=== PATIENT | male | born 1945 | race Caucasian/White ===

== ENCOUNTER 2022-06-03 12:34 | Inpatient (IN) | payer OTHER, MEDICARE, SELFPAY ==
[2022-06-03] VITALS (16 sets, daily range): BP systolic 82–121; BP diastolic 40–77; PULSE 81–125; RESP 16–23; TEMP 36.4–37.2; O2SAT 91–100; BMI 22.1
--- NOTE | ~2022-06-03 | US_ITS ---
EXAMINATION: US carotid duplex BI DATE: 06/04/2022 12:24 INDICATION: Syncope. TECHNIQUE: Grayscale, color Doppler, and pulsed Doppler images of the cervical carotid arteries were obtained. The degree of vessel stenosis is placed in one of the following categories: normal, <50%, 5 0-69%, >=70% but less than near-occlusion, near-occlusion, or total occlusion. Note that percent sten osis relative to normal distal artery lumen diameter is indirectly measured from velocity measurement s as described by Baldo, et al. Radiology 2003; 229:340-346. COMPARISON: None. FINDINGS: RIGHT: The right common carotid artery (CCA) peak systolic velocity (PSV) is 76 cm/s. The right internal car otid artery (ICA) PSV is 76 cm/s. The right ICA end-diastolic velocity (EDV) is 23 cm/s. The right IC A/CCA PSV ratio is 1.0. Grayscale and color Doppler images yield an estimate of <50% diameter reducti on from plaque in the ICA. There is antegrade flow in the right vertebral artery. LEFT: The left CCA PSV is 78 cm/s. The left ICA PSV is 73 cm/s. The left ICA EDV is 20 cm/s. The left ICA/C CA PSV ratio is 0.9. Grayscale and color Doppler images yield an estimate of <50% diameter reduction from plaque in the ICA. There is antegrade flow in the left vertebral artery. IMPRESSION: 1. <50% stenosis in the right internal carotid artery. 2. <50% stenosis in the left internal carotid artery. Reviewed, dictated and finalized at location A.
--- NOTE | ~2022-06-03 | CT_ITS ---
EXAMINATION: CTA chest PE protocol DATE: 06/03/2022 16:26 INDICATION: syncope TECHNIQUE: Computed tomography angiography (CTA) of the chest was performed with 100 mL Omnipaque-350 intravenous contrast timed to evaluate the pulmonary arteries. Coronal maximum intensity projection 3D-reconstructions were created by the technologist. The dose-length product (DLP) was 404.72 mGy-cm. Automated exposure control and iterative reconstruction technique were employed. COMPARISON: X-ray chest, same date. FINDINGS: Lung parenchyma and airways: Multiple sub-6 mm pulmonary nodules. Emphysematous and senescent change. Bibasilar atelectasis. Pleura: Unremarkable. Thoracic inlet, axillae and chest wall: Unremarkable. Thoracic aorta: Moderate arch calcification. Mediastinum: Normal. Heart and pericardium: Normal. Coronary artery calcifications: Moderate. Upper abdomen: No significant finding. Bones: No acute osseous finding. Pulmonary arteries: Study quality: Adequate. No pulmonary emboli detected. IMPRESSION: No CT evidence of acute pulmonary embolus. Multiple sub-6 cm pulmonary nodules, requiring no addition al evaluation unless the patient is at high risk, in which case consider optional low-dose CT of the chest in 12 months. Reviewed, dictated and finalized at location K. IMPRESSION: No CT evidence of acute pulmonary embolus. Multiple sub-6 cm pulmonary nodules, requiring no additional evaluation unless the patient is at high risk, in whic h case consider optional low-dose CT of the chest in 12 months.
--- NOTE | ~2022-06-03 | XR_ITS ---
EXAMINATION: XR chest 1V portable DATE: 06/03/2022 13:14 INDICATION: Altered mental status. TECHNIQUE: A single frontal view of the chest was obtained. COMPARISON: Chest 2 views 07/02/2009 FINDINGS: There is chronic elevation of left hemidiaphragm. There is mild atelectasis at left lung ba se. No pleural effusion or pneumothorax. The heart size is normal. IMPRESSION: 1. Chronic elevation of left hemidiaphragm with mild atelectasis at left lung base. Reviewed, dictated and finalized at location A.
--- NOTE | ~2022-06-03 | MR_ITS ---
EXAMINATION: MR brain/brain stem wo/w con DATE: 06/04/2022 12:13 INDICATION: Syncope. TECHNIQUE: Magnetic resonance imaging (MRI) of the brain and brainstem was performed without and with 13 mL MultiHance intravenous contrast. COMPARISON: Head CT 06/03/2022 FINDINGS: There is an old infarct in involving the genu of the corpus callosum. There are scattered a reas of nonspecific increased T2-weighted signal intensity in the cerebral white matter. There is no intracranial hemorrhage, acute infarction, or abnormal intracranial mass lesion. The ventricles are n ormal in size. There are likely changes of ocular lens replacement surgeries. There is mucosal thicke taco in the paranasal sinuses. The mastoid air cells are normal. IMPRESSION: 1. Old infarcts involving genu of the corpus callosum. 2. Extensive nonspecific cerebral white matter disease, which likely represents chronic small vessel ischemic disease. Reviewed, dictated and finalized at location A.
--- NOTE | ~2022-06-03 | CT_ITS ---
EXAMINATION: CT brain wo con DATE: 06/03/2022 13:43 INDICATION: Dizziness. TECHNIQUE: Computed tomography (CT) of the head was performed without intravenous contrast. The mA wa s adjusted according to patient size. Iterative reconstruction technique was employed. The dose-lengt h product was 605.33 mGy-cm. COMPARISON: None FINDINGS: There are scattered areas of low attenuation in the cerebral white matter. There is no intr acranial hemorrhage, acute infarction, or abnormal intracranial mass lesion. There is an old infarct involving genu of the corpus callosum. There is no intracranial hemorrhage, acute infarction, or abno rmal intracranial mass lesion. The ventricles are normal in size. There is mucosal thickening in the paranasal sinuses. There are likely changes of ocular lens replacement surgeries. The mastoid air hemal ls are normal. IMPRESSION: 1. Old infarct involving genu of the corpus callosum. 2. Extensive nonspecific cerebral white matter disease, which likely represents chronic small vessel ischemic disease. Reviewed, dictated and finalized at location A.
--- NOTE | 2022-06-03 12:44 | ECG_ITS ---
Measurements Intervals [place] Rate: 107 P: 49 DC: 160 QRS: 54 QRSD: 87 T: 68 QT: 307 QTc: 411 Interpretive Statements SINUS TACHYCARDIA INCOMPLETE RIGHT BUNDLE BRANCH BLOCK NONSPECIFIC T-WAVE ABNORMALITY ABNORMAL RHYTHM ECG NO PREVIOUS ECG AVAILABLE FOR COMPARISON Electronically Signed On 06-04-2022 11:50:22 CDT by Bladimir Perez M.D.
[2022-06-03] MEDS: SODIUM CHLORIDE 0.9% IV 1,000 ML 999 ML IV CONT ×2 (13:14→14:47)
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
[2022-06-03 13:33] LABS: Basophils Percent Auto 0.2 % (0.2-1.2); Eosinophils Percent Auto 0.2 % (0-4.4); Hematocrit 38.9 % (42.0-52.0); Immature Granulocyte Absolute 0.08 K/mm3 (0.00-0.031); Immature Granulocyte Percent A 0.4 % (0-0.5); Immature Platelet Fraction Pct 7.7 % (0.9-11.2); Lymphocytes Absolute Auto 0.55 K/mm3 (0.9-3.2); Lymphocytes Percent Auto 3.1 % (18.3-44.2); Mean Corpuscular HGB Conc 33.4 g/dl (32-36); Mean Corpuscular Hemoglobin 31.8 pg (26-34); Mean Corpuscular Volume 95.1 fl (80-100); Mean Platelet Volume 10.3 fl (7.4-10.4); Monocytes Absolute Auto 1.4 K/mm3 (0.1-0.6); Neutrophils Absolute Auto 15.8 K/mm3 (1.3-6.7); Neutrophils Percent Auto 88.1 % (45.5-73.1); Platelet Count Result 263 k/mm3 (150-375); Red Blood Count 4.09 M/mm3 (4.6-6.20); Red Cell Distribution Width 13.1 % (11.5-14.5)
[2022-06-03 13:41] LABS: INR 1.1; Prothrombin Time 13.8 Seconds (11.1-14.7)
[2022-06-03 13:42] LABS: Lactic Acid Reflex 2.1 mmol/L (0.7-2.0)
[2022-06-03 13:43] LABS: Partial Thromboplastin Time 40.9 SECONDS (22.3-36.8)
[2022-06-03 13:45] LABS: Alanine Aminotransferase 20 U/L (6-50); Albumin Level 4.3 g/dL (3.5-5.1); Alkaline Phosphatase 113 U/L (38-126); Anion Gap 7 mmol/L (8-16); Aspartate Amino Transferase 27 U/L (17-59); Bilirubin,Total 0.8 mg/dL (0.2-1.3); Blood Urea Nitrogen 13 mg/dL (9-20); Carbon Dioxide 31 mmol/L (22-30); Chloride 98 mmol/L (98-107); Estimated CRCL calculation 57 ml/min; Estimated Glomerular Filt Rate > 60; Glucose 124 mg/dL (65-110); Lipase 55 U/L (23-300); Magnesium 1.5 mg/dL (1.6-2.3); Sodium 136 mmol/L (137-145)
[2022-06-03 13:55] LABS: Troponin I < 0.012 ng/mL (0.000-0.034)
[2022-06-03] MEDS: MAGNESIUM SULF 2 GM/WATER 50ML 2 GM/50 ML BAG IVPB (14:31)
[2022-06-03 14:49] LABS: Influenza A QL RT-PCR Negative (Negative); Influenza B QL RT-PCR Negative (Negative); SARS-CoV-2 RNA PCR Negative
[2022-06-03 15:32] LABS: Add Urine Microscopic? YES; Appearance Urine Clear (Clear); Bacteria Urine None Seen /hpf; Bilirubin Urine Negative (Negative); Blood Urine Trace (Negative); Color Urine Yellow (Yellow); Glucose Urine UA Negative (Negative); Ketones Urine Negative (Negative); Leukocyte Esterase Ur Negative LEU/UL (Negative); Need Manual Microscopic Reviewed; Nitrate Urine Negative (Negative); Non Pathogenic Casts 0-2; Protein Urine 1+ mg/dL (Negative); Specific Grav Ur 1.017 (1.001-1.035); Squamous Epithelial Cell Urine None seen /hpf (Few); WBC Urine 0-5 /hpf; pH Urine 6.5 (5.0-9.0)
[2022-06-03 16:29] LABS: Reflex Lactic Acid Yes or No Add Lactic
[2022-06-03] MEDS: SODIUM CHLORIDE 0.9% IV 1,000 ML 80 ML IV CONT (17:22)
[2022-06-03 17:40] LABS: Lactic Acid 0.8 mmol/L (0.7-2.0)
[2022-06-03 17:55] LABS: Glucose Point of Care 96 mg/dl (65-105)
[2022-06-03 17:57] LABS: Troponin I 0.129 ng/mL (0.000-0.034)
--- NOTE | 2022-06-03 18:14 | ADMGEN ---
This patient, Servando Joyce, was admitted to IMU Room 206-02. Patient/family oriented to hospital policies and general routines including ID bracelet, bed and alarms, visiting hours, pain management, procedures, bathroom and other care routines, personal items, smoking policy, room service/diet, and visiting hours. Information on how to activate the Rapid Response Team has been discussed. Patient/Family are encouraged to report perceived risks to care and to ask questions if they do not understand what they are told or what they should do.
[2022-06-03 19:38] LABS: Troponin I 0.236 ng/mL (0.000-0.034)
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
[2022-06-04] VITALS (18 sets, daily range): BP systolic 81–117; BP diastolic 38–69; PULSE 20–86; RESP 16–96; TEMP 36.4–36.9; O2SAT 93–98
--- NOTE | 2022-06-04 | ECHO_ITS ---
Patient Info Name: Servando Joyce Age: 77 years : 1945 Gender: Male Ht: 68 in Wt: 145 lbs BSA: 1.78 m2 HR: 75 bpm BP: 81 / 38 mmHg Heart Rhythm: Sinus Rhythm Exam Date: 06/04/2022 8:58 AM Exam Location: [facility] Patient Status: Outpatient Admit Date: 06/03/2022 Staff Ordering Physician: Julia Strauss NP Surfboard Maker: Shant Palma RDCS, RT Attending Provider: Lashon Pizano MD Referring Physician: Carlos A BARFIELD; Exam Type: CA echo doppler color flow Study Info Indications R55 - Syncope and collapse Complete two-dimensional, color flow and Doppler transthoracic echocardiogram is performed. Strain analysis performed. Summary 1. Complete two-dimensional, color flow and Doppler transthoracic echocardiogram is performed. 2. Strain analysis performed. 3. Left ventricular chamber dimension is normal. 4. Left ventricular systolic function is normal, estimated at 65-70%. 5. There is mildly increased left ventricular wall thickness. 6. The left ventricular diastolic function is grade I diastolic dysfunction. 7. Global longitudinal strain is normal at -22 %. 8. Left atrial chamber dimension is mildly enlarged. 9. Right atrial chamber dimension is mildly enlarged. 10. There is mild aortic valve stenosis with a peak velocity of 195 cm/s, mean gradient of 9 mmHg, and aortic valve area of 1.7 cm2. 11. There is moderate aortic valve calcification. 12. There is mild mitral valve regurgitation. 13. There is mild tricuspid valve regurgitation. Left Ventricle Left ventricular chamber dimension is normal. Left ventricular systolic function is normal, estimated at 65-70%. There is mildly increased left ventricular wall thickness. The left ventricular diastolic function is grade I diastolic dysfunction. Global longitudinal strain is normal at -22 %. Right Ventricle Right ventricular chamber dimension is normal. Right ventricular systolic function is normal. Left Atria Left atrial chamber dimension is mildly enlarged. Right Atria Right atrial chamber dimension is mildly enlarged. Atrial Septum Intact interatrial septum visualized by color flow imaging. Aortic Valve The aortic valve is trileaflet. There is mild aortic valve stenosis with a peak velocity of 195 cm/s, mean gradient of 9 mmHg, and aortic valve area of 1.7 cm2. There is trace aortic valve regurgitation. There is moderate aortic valve calcification. Pulmonic Valve The pulmonic valve is normal. There is no pulmonic valve stenosis. There is trace pulmonic regurgitation. Mitral Valve The mitral valve has thickened leaflets. There is no mitral valve stenosis. There is mild mitral valve regurgitation. Tricuspid Valve The tricuspid valve leaflets are normal. There is no significant tricuspid valve stenosis. There is mild tricuspid valve regurgitation. No pulmonary hypertension, estimated pulmonary arterial systolic pressure is 33 mmHg. Pericardium/Pleural The pericardium appears normal. There is trivial pericardial effusion. Inferior Vena Cava Normal inferior vena cava with >50% collapse upon inspiration consistent with normal right atrial pressure, 5 mmHg. Aorta The aortic root size at the sinus of Valsalva is normal. There is mild aortic atherosclerosis. Left Ventricular Outflow Tract Name Value Normal
[2022-06-04 00:39] LABS: Troponin I 0.408 ng/mL (0.000-0.034)
[2022-06-04 02:52] LABS: Amphetamine Screen Urine Negative (Negative); Barbiturate Screen Urine Negative (Negative); Benzodiazepines Screen Urine Negative (Negative); Cannabinoid Screen Urine Negative (Negative); Cocaine Screen Urine Negative (Negative); Methadone Screen Urine Negative (Negative); Opiate Screen Urine Negative (Negative); Phencyclidine Screen Urine Negative (Negative)
[2022-06-04 05:07] LABS: Basophils Percent Auto 0.2 % (0.2-1.2); Eosinophils Absolute Auto 0.2 K/mm3 (0-0.3); Eosinophils Percent Auto 1.5 % (0-4.4); Hematocrit 32.1 % (42.0-52.0); Hemoglobin 10.4 g/dL (14.0-18.0); Immature Granulocyte Absolute 0.06 K/mm3 (0.00-0.031); Immature Granulocyte Percent A 0.4 % (0-0.5); Lymphocytes Percent Auto 10.8 % (18.3-44.2); Mean Corpuscular HGB Conc 32.4 g/dl (32-36); Mean Corpuscular Hemoglobin 30.8 pg (26-34); Mean Platelet Volume 10.3 fl (7.4-10.4); Monocytes Percent Auto 13.4 % (2.6-8.5); Neutrophils Absolute Auto 10.9 K/mm3 (1.3-6.7); Neutrophils Percent Auto 73.7 % (45.5-73.1); Platelet Count Result 188 k/mm3 (150-375); Red Blood Count 3.38 M/mm3 (4.6-6.20); Red Cell Distribution Width 13.1 % (11.5-14.5); White Blood Count 14.9 K/mm3 (4.5-10.0)
[2022-06-04 05:19] LABS: Alanine Aminotransferase 17 U/L (6-50); Albumin Level 3.3 g/dL (3.5-5.1); Alkaline Phosphatase 80 U/L (38-126); Anion Gap 2 mmol/L (8-16); Aspartate Amino Transferase 28 U/L (17-59); Bilirubin,Total 0.8 mg/dL (0.2-1.3); Blood Urea Nitrogen 12 mg/dL (9-20); Calcium 8.2 mg/dL (8.4-10.2); Carbon Dioxide 28 mmol/L (22-30); Chloride 103 mmol/L (98-107); Estimated CRCL calculation 57 ml/min; Estimated Glomerular Filt Rate > 60; Glucose 87 mg/dL (65-110); Potassium 3.8 mmol/L (3.4-5.0); Sodium 133 mmol/L (137-145)
[2022-06-04 05:22] LABS: Lactic Acid Reflex 0.7 mmol/L (0.7-2.0)
[2022-06-04 06:07] LABS: Thyroid Stimulating Hormone Reflex 0.785 uIU/mL (0.465-4.68)
[2022-06-04] MEDS: SODIUM CHLORIDE 0.9% IV 1,000 ML 80 ML IV CONT (06:31)
--- NOTE | 2022-06-04 08:46 | PCRCNOTE ---
Patient refused 0800 Breathing treatment. RN notified
--- NOTE | 2022-06-04 08:48 | PC.NURSE ---
BP 87/49 with a MAP of 57. Asymptomatic. Orthostatics negative. Dr. Wagoner made aware. Advised to increase normal saline to 100 ml/hr.
[2022-06-04] MEDS: GABAPENTIN 400 MG CAPSULE 800 MG PO ×3 (09:01→17:43)
[2022-06-04] MEDS: CLOPIDOGREL BISULFATE 75 MG TABLET PO (09:01)
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
--- NOTE | 2022-06-04 10:56 | PC.NURSE ---
BP 86/48. Asymptomatic. Dr. Byrd made aware. New orders for 500 ml Bolus of NS.
[2022-06-04] MEDS: SODIUM CHLORIDE 0.9% IV 500 ML 999 ML IV CONT (11:09)
[2022-06-04] MEDS: diazePAM (*CRX) 5 MG TABLET PO (11:11)
[2022-06-04] MEDS: levoFLOXacin 500 MG/D5W 100 ML 500 MG/100 ML BAG 100 MG IVPB (12:26)
[2022-06-04 13:34] LABS: Troponin I 0.203 ng/mL (0.000-0.034)
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
[2022-06-04 14:07] LABS: Hematocrit 30.7 % (42.0-52.0); Hemoglobin 10.1 g/dL (14.0-18.0); Mean Corpuscular HGB Conc 32.9 g/dl (32-36); Mean Corpuscular Hemoglobin 31.2 pg (26-34); Mean Corpuscular Volume 94.8 fl (80-100); Mean Platelet Volume 10.2 fl (7.4-10.4); Platelet Count Result 176 k/mm3 (150-375); Red Blood Count 3.24 M/mm3 (4.6-6.20); White Blood Count 11.2 K/mm3 (4.5-10.0)
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
--- NOTE | 2022-06-04 15:53 | WPDNEURCNPN ---
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: Code(s): G40.109 - Localization-related (focal) (partial) symptomatic epilepsy and epileptic syndromes with simple partial seizures, not intractable, without status epilepticus Status: Acute Plan Considering the history of the previous stroke rule out the possibility of focal seizure with secondary generalization or else localization-related epilepsy I will obtain the EEG and further recommendation will be made accordingly Consult date: 06/04/22 HPI: Servando Joyce is a 77 year old male [facility] Past Medical History Medical History Anemia Coronary artery disease History of CVA (cerebrovascular accident) Hyperlipidemia Hypertension Melanoma Mitral valve prolapse PTSD (post-traumatic stress disorder) Surgical History Surgical History H/O cataract extraction History of removal of pigmented skin lesion Family History Family History Unknown Unobtainable family history due to adoption Social History Social History Social History: The patient is retired from the and is on disability. The patient lives with his youngest son. He is and has 4 children. He is a current smoker approximately 8-9 cigarettes a day. Code status full code Smoking status: Current some day smoker Alcohol intake: current Substance use: never Lack of Transportation: No Lack of Food: Never True Current Housing: I Have Housing Concerned About Future Housing: Decline to Answer Difficulty Paying Gas/Electric Bills: Decline to Answer Difficulty Paying for Meds: Decline to Answer Currently Unemployed: Decline to Answer Education: Decline to Answer Difficulty w/ Childcare or Family Care: Decline to Answer Spiritual care concerns: No Meds Home Medications and Allergies Home Medications Medication Instructions Recorded Confirmed Type atorvastatin 80 mg tablet 80 mg PO HS 06/03/22 06/03/22 History clopidogrel 75 mg tablet 75 mg PO DAILY 06/03/22 06/03/22 History gabapentin 800 mg tablet 800 mg PO TID 06/03/22 06/03/22 History lisinopril 10 mg tablet 10 mg PO DAILY 06/03/22 06/03/22 History Allergies Allergy/AdvReac Type Severity Reaction Status Date / Time aspirin Allergy Mild Anaphylaxis Verified 06/03/22 12:42 penicillin G Allergy Mild Anaphylaxis Verified 06/03/22 12:42 Vital Signs Vital Signs - 24 hr 06/03/22 18:00 06/03/22 17:23 06/03/22 17:48 Temperature 37.2 C Pulse Rate 98 95 Respiratory Rate 16 Blood Pressure 105/54 L 85/45 L Pulse Oximetry 92 Oxygen Delivery 06/03/22 17:48 06/03/22 19:59 06/03/22 20:00 Temperature 36.4 C Pulse Rate 84 Respiratory Rate 20 Blood Pressure 86/50 L 103/53 L Pulse Oximetry 94 94 Oxygen Delivery Room Air 06/03/22 23:29 06/03/22 20:00 06/03/22 23:52 Temperature 36.4 C Pulse Rate 82 81 Respiratory Rate 20 Blood Pressure 98/47 L Pulse Oximetry 94 94 Oxygen Delivery Room Air 06/03/22 22:00 06/04/22 00:00 06/04/22 02:00 Temperature Pulse Rate 83 82 75 Respiratory Rate Blood Pressure Pulse Oximetry Oxygen Delivery 06/04/22 03:44 06/04/22 04:00 06/04/22 04:00 Temperature 36.9 C Pulse Rate 79 79 Respiratory Rate 20 Blood Pressure 81/38 L Pulse Oximetry 93 94 Oxygen Delivery Room Air 06/04/22 06:00 06/04/22 08:00 06/04/22 08:00 Temperature 36.6 C
[2022-06-04] MEDS: ATORVASTATIN 40 MG TABLET 80 MG PO (20:47)
[2022-06-05] VITALS (10 sets, daily range): BP systolic 111–130; BP diastolic 54–64; PULSE 68–91; RESP 18–20; TEMP 36.4–37.1; O2SAT 95–98
[2022-06-05] MEDS: SODIUM CHLORIDE 0.9% IV 1,000 ML 80 ML IV CONT (01:13)
--- NOTE | 2022-06-05 08:25 | PCRCNOTE ---
Patient refused 0800 breathing Treatment and does not want to be scheduled. RN notified.
[2022-06-05] MEDS: GABAPENTIN 400 MG CAPSULE 800 MG PO ×2 (09:19→13:42)
[2022-06-05] MEDS: CLOPIDOGREL BISULFATE 75 MG TABLET PO (09:19)
--- NOTE | 2022-06-05 09:31 | P.NEURO_ITS ---
Neurology EEG Report General Information Date of Study: 06/05/22 TEST eeg DIAGNOSIS seizures vs rigors CONDITION OF RECORDING awake ,drowsy and sleep EEG NUMBER [id number] CLINICAL HISTORY History of possible seizure versus rigors EEG DESCRIPTION basic resting occipital frequency consists of very minimal amount of low- voltage to medium voltage 8 to 9 hertz per 2nd alpha during brief periods of wakefulness admixed with low-voltage 15 to 18 hertz per 2nd beta. Low-voltage beta activity seen diffusely during drowsiness admixed with waxing and waning posterior alpha rhythm. Bilateral symmetrical sleep activity seen during sleep. Hyperventilation not done. Photic stimulation not done. Non paroxysmal. Nonfocal. Nonlateralizing. IMPRESSION No significant abnormalities noted.
[2022-06-05 11:21] LABS: Hematocrit 32.3 % (42.0-52.0); Hemoglobin 10.5 g/dL (14.0-18.0); Mean Corpuscular HGB Conc 32.5 g/dl (32-36); Mean Corpuscular Hemoglobin 30.7 pg (26-34); Mean Corpuscular Volume 94.4 fl (80-100); Platelet Count Result 176 k/mm3 (150-375); Red Blood Count 3.42 M/mm3 (4.6-6.20); Red Cell Distribution Width 12.9 % (11.5-14.5); White Blood Count 10.4 K/mm3 (4.5-10.0)
--- NOTE | 2022-06-05 11:21 | WPDNEUROPN ---
Subjective Date/time seen: 06/05/22 11:21 Interval history: Seen initially on 06/04 for the possibility of the TIA versus seizure EEG this morning is completely normal but I would like him to start on Keppra 500 mg twice a day orders have been given and he will be followed in the office in 6 weeks. Objective Data Vital Signs Vital Signs: Vital Signs - 24 hr 06/04/22 12:00 06/04/22 12:00 06/04/22 12:00 Temperature 36.5 C Pulse Rate 66 74 Respiratory Rate 16 Blood Pressure 97/57 L Pulse Oximetry 97 97 Oxygen Delivery Room Air 06/04/22 14:00 06/04/22 16:00 06/04/22 16:00 Temperature Pulse Rate 73 68 Respiratory Rate Blood Pressure Pulse Oximetry 97 Oxygen Delivery Room Air 06/04/22 16:00 06/04/22 18:00 06/04/22 20:00 Temperature 36.7 C Pulse Rate 72 86 Respiratory Rate 20 Blood Pressure 105/69 Pulse Oximetry 98 96 Oxygen Delivery Room Air 06/04/22 20:37 06/04/22 20:37 06/04/22 20:00 Temperature 36.4 C Pulse Rate 76 73 Respiratory Rate 20 Blood Pressure 115/58 L 116/62 Pulse Oximetry 96 Oxygen Delivery 06/04/22 22:00 06/04/22 23:43 06/05/22 00:00 Temperature 36.5 C Pulse Rate 71 77 Respiratory Rate 20 Blood Pressure 117/64 Pulse Oximetry 97 Oxygen Delivery Room Air 06/05/22 00:00 06/05/22 02:00 06/05/22 03:55 Temperature Pulse Rate 91 85 Respiratory Rate Blood Pressure Pulse Oximetry Oxygen Delivery Room Air 06/05/22 04:54 06/05/22 04:00 06/05/22 06:00 Temperature 36.4 C Pulse Rate 69 76 72 Respiratory Rate 20 Blood Pressure 130/64 Pulse Oximetry 98 Oxygen Delivery 06/05/22 07:56 06/05/22 08:20 Temperature 37.1 C Pulse Rate 91 Respiratory Rate 18 Blood Pressure 111/54 L Pulse Oximetry 97 95 Oxygen Delivery Room Air Intake/Output Intake/Output: Intake & Output 06/02/22 06/03/22 06/04/22 06/05/22 23:59 23:59 23:59 23:59 Intake Total 2050 4820 1000 Output Total 1650 1700 Balance 2050 3170 -700 Meds/Results Medications: Active Medications Generic Name Dose Route Start Last Admin Trade Name Freq PRN Reason Stop Dose Admin Atorvastatin Calcium 80 mg 06/04/22 21:00 06/04/22 20:47 Atorvastatin 40 Mg Tablet PO 80 mg HS OSIEL Administration Clopidogrel Bisulfate 75 mg 06/04/22 09:00 06/05/22 09:19 Clopidogrel Bisulfate 75 Mg Tablet PO 75 mg DAILY OSIEL Administration Gabapentin 800 mg 06/04/22 09:00 06/05/22 09:19 Gabapentin 400 Mg Capsule PO 800 mg TID OSIEL Administration Sodium Chloride 1,000 mls @ 100 mls/hr 06/03/22 15:45 06/05/22 07:00 Normal Saline Iv IV CONT 06/05/22 15:44 100 mls/hr .Q10H OSIEL Infusion Levofloxacin/Dextrose 500 mg in 100 mls @ 100 mls/hr 06/04/22 12:00 06/04/22 12:26 Levaquin 500 Mg/D5w 100 Ml IVPB 100 mls/hr Q24H OSIEL Administration Ipratropium Al[place] 0.5 mg 06/04/22 02:00 06/05/22 08:19 Ipratropium Br 0.02% Inh Soln 0.5 Mg/2.5 Ml Vial INHALATION Not Given Q6HRT OSIEL Levalbuterol HCl 0.63 mg 06/04/22 02:00 06/05/22 08:19 Levalbuterol Neb 1.25 Mg/3 Ml INHALATION Not Given Q6HRT OSIEL Perflutren Lipid Microsphere 0 ml 06/03/22 23:07 Perflutren Lipid Microspheres 1.5 Ml Vial Diluted To 10 Ml Total Volume IV PUSH 06/05/22 23:07 ONCE PRN adequate visualization Protocol Radiology Results: ITS Impressions Chest X-Ray 06/03/22 13:17 IMPRESSION: 1. Chronic elevation of left hemidiaphragm with mild atelectasis at left lung base. Head CT 06/03/22 13:48 IMPRESSION: 1. Old infarct involving genu of the corpus callosum. 2. Extensive nonspecific cerebral white matter disease, which likely represents chronic small vessel ischemic disease. Chest CTA 06/03/22 16:34 IMPRESSION: No CT evidence of acute pulmonary embolus. Multiple sub-6 cm pulmonary nodules, requiring no additional evaluation unless the patient is at high risk, in which case
[2022-06-05 11:33] LABS: Lactic Acid Reflex 1.1 mmol/L (0.7-2.0)
[2022-06-05 11:34] LABS: Anion Gap 3 mmol/L (8-16); Blood Urea Nitrogen 10 mg/dL (9-20); Carbon Dioxide 32 mmol/L (22-30); Chloride 101 mmol/L (98-107); Estimated CRCL calculation 66 ml/min; Estimated Glomerular Filt Rate > 60; Glucose 87 mg/dL (65-110); Potassium 3.5 mmol/L (3.4-5.0); Sodium 136 mmol/L (137-145)
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
[2022-06-05] MEDS: levETIRAcetam 500 MG TABLET PO (13:42)
== END 2022-06-05 14:56 | disposition home or self-care (01) | DRG 101 ==
LOC: ANHED 15:47 → ANHIMU 16:31
PROVIDERS: Family Medicine; Internal Medicine; Internal Medicine Cardiovascular Disease; Nurse Practitioner; Admitting Provider Family Medicine; Emergency Provider Emergency Medicine; Visit Provider Internal Medicine
DX: G40.109 Localization-related (focal) (partial) symptomatic epilepsy and epileptic syndromes with simple partial seizures, not intractable, without status epilepticus (principal); R00.0 Tachycardia, unspecified; I95.9 Hypotension, unspecified; D64.9 Anemia, unspecified; I25.10 Atherosclerotic heart disease of native coronary artery without angina pectoris; E78.5 Hyperlipidemia, unspecified; R77.8 Other specified abnormalities of plasma proteins; I10 Essential (primary) hypertension; Z20.822 Contact with and (suspected) exposure to COVID-19; F43.10 Post-traumatic stress disorder, unspecified; D72.829 Elevated white blood cell count, unspecified; I34.1 Nonrheumatic mitral (valve) prolapse; F17.210 Nicotine dependence, cigarettes, uncomplicated; Z85.820 Personal history of malignant melanoma of skin; Z86.73 Personal history of transient ischemic attack (TIA), and cerebral infarction without residual deficits; Z98.49 Cataract extraction status, unspecified eye; I25.2 Old myocardial infarction; Z95.5 Presence of coronary angioplasty implant and graft
CPT/HCPCS: 36415; 70450; 70553; 71045; 71275; 80048; 80053; 80307; 81001; 82948; 83605; 83690; 83735; 84443; 84484; 85025; 85027; 85055; 85610; 85730; 87040; 87636; 93005; 93306; 93880; 95816; 96360; 96361; 96365; 99285; A9270; A9577; G0378; J1956; J3475; J7030; Q9967

== ENCOUNTER 2024-05-07 15:54 | Emergency (ER) | payer OTHER, MEDICARE, SELFPAY ==
--- NOTE | ~2024-05-07 | XR_ITS ---
XR chest 2V Ordering provider: Jerad Negro MD History: 79 years Male with . IRREGULAR HEART RATE, SOB . Comparison: June 03, 2022 FINDINGS: MEDIASTINUM: The cardiac silhouette is not enlarged. Slightly congestive yoselyn. LUNGS: No effusions or pneumothorax. Prominent bronchovascular markings in the right lung base which may indicate atelectasis versus early pneumonia. Follow-up advised. Underlying emphysematous changes. Elevation of the left hemidiaphragm due to underlying colonic loops. OTHER: No free air under the diaphragm. Degenerative changes of the spine. IMPRESSION: Prominent markings in the right lung base suggestive of early pneumonia. Follow-up and clinical corre lation advised. Reviewed, dictated and finalized at location A. [employer] OPERATOR IMPRESSION: Prominent markings in the right lung base suggestive of early pneumonia. Follow -up and clinical correlation advised.
--- NOTE | 2024-05-07 15:57 | ECG_ITS ---
Test Date: 2024-05-07 16:41:39 Measurements Intervals [place] Rate: 95 P: 64 W[place]: 112 QRS: 48 QRSD: 81 T: 70 QT: 382 QTc: 480 Interpretive Statements SINUS RHYTHM WITH SHORT [place] INTERVAL WITH OCCASIONAL SUPRAVENTRICULAR PREMATURE COMPLEXES INCOMPLETE RIGHT BUNDLE BRANCH BLOCK No previous ECG available for comparison Electronically Signed On 05-08-2024 16:19:59 [employer]ANCH SUPERVIS[employer] by Bladimir Perez M.D.
[2024-05-07 16:32] VITALS: BP 131/67; PULSE 95; RESP 18; TEMP 36.6; O2SAT 92
--- NOTE | 2024-05-07 16:46 | ED_ITS ---
HPI - Arrhythmia/Palpitations General Chief Complaint: Arrhythmia/Palpitations <Odalys Zepeda PA-C - Last Filed: 05/07/24 16:49> Stated Complaint: IRREGULAR HEART RATE <Odalys Zepeda PA-C - Last Filed: 05/07/24 16:49> Time Seen by Provider: 05/07/24 16:40 <Odalys Zepeda PA-C - Last Filed: 05/07/24 16:49> Focused HPI: Patient is a 79-year-old male who presents the ED with report of shortness of breath and irregular heartbeat. Patient reports he checked his blood pressure this morning on his machine at home and his BP was WNL at 120 systolic, but the monitor reported that his heartbeat was irregular. He states he checked his blood pressure several times throughout the day and each time it reported irregular heartbeat. He reports feeling very jittery and restless. States he can hardly sit still. Does feel short of breath. Notes he was sick last week with cough and congestion. He is still coughing, but denies fevers. He denies chest pain. Denies pain or swelling in legs. GENERAL: Elderly, well-nourished, and in no acute distress. HEAD: Normocephalic, atraumatic. CHEST: Clear to auscultation. ?No respiratory distress. HEART: Regular rate and rhythm.? NEURO: ?Alert and oriented x3. No gross focal deficits. Patient screened in triage and initial orders placed.? ?Additional care and disposition to be based upon?diagnostic testing and treatment. <Odalys Zepeda PA-C - Last Filed: 05/07/24 16:49> Focused HPI: Patient is a 79-year-old male who presents the ED with report of shortness of breath and irregular heartbeat. Patient reports he checked his blood pressure this morning on his machine at home and his BP was WNL at 120 systolic, but the monitor reported that his heartbeat was irregular. He states he checked his blood pressure several times throughout the day and each time it reported irregular heartbeat. He reports feeling very jittery and restless. States he can hardly sit still. Does feel short of breath. Notes he was sick last week with cough and congestion. He is still coughing. He denies chest pain. Denies pain or swelling in legs. GENERAL: Elderly, well-nourished, and in no acute distress. HEAD: Normocephalic, atraumatic. CHEST: Clear to auscultation. ?No respiratory distress. HEART: Regular rate and rhythm.? NEURO: ?Alert and oriented x3. No gross focal deficits. Patient screened in triage and initial orders placed.? ?Additional care and disposition to be based upon?diagnostic testing and treatment. <KASSY Harris Last Filed: 05/08/24 01:13> Source: patient <KASSY Bob Last Filed: 05/07/24 16:49> Mode of arrival: ambulatory <KASSY Bob Last Filed: 05/07/24 16:49> Limitations: no limitations <KASSY Bob Last Filed: 05/07/24 16:49> Related Data Home Medications: Home Medications ?Medication ?Instructions ?Recorded ?Confirmed ?Last Taken ?Type atorvastatin 80 mg tablet 80 mg PO HS 06/03/22 06/03/22 Unknown History clopidogrel 75 mg tablet 75 mg PO DAILY 06/03/22 06/03/22 Unknown History gabapentin 800 mg tablet 800 mg PO TID 06/03/22 06/03/22 Unknown History <KASSY Bob Last Filed: 05/07/24 16:49> Allergies/Adverse Reactions: Allergies Allergy/AdvReac Type Severity Reaction Status Date / Time aspirin Allergy Mild Anaphylaxis Verified 05/07/24 15:55 penicillin G Allergy Mild Anaphylaxis Verified 05/07/24 15:55 <KASSY Bob Last Filed: 05/07/24 16:49> Review of Systems 2 Review of Systems: CONSTITUTIONAL: Reports fever ENT: Reports congestion CARDIOVASCULAR: Denies chest pain, or edema. RESPIRATORY: Reports cough and dyspnea. <KASSY Harris Last Filed: 05/08/24 01:13> All systems reviewed & are unremarkable except as noted in HPI and below < KASSY Harris Last Filed: 05/08/24 01:13> PMFSH Past Medical History Medical History: Medical History Anemia Coronary artery disease History of CVA (cerebrovascular accident) Hyperlipidemia Hypertension Melanoma Mitral valve prolapse PTSD (post-traumatic stress disorder) <Odalys Zepeda PA-C - Last Filed: 05/07/24 16:49> Surgical History Surgical History: Surgical History H/O cataract extraction History of removal of pigmented skin lesion <Odalys Zepeda PA-C - Last Filed: 05/07/24 16:49> Family History Family History: Family History Unknown Unobtainable family history due to adoption <Odalys Zepeda PA-C - Last Filed: 05/07/24 16:49> Social History Social History: Social History Social History: The patient is retired from the and is on disability. The patient lives with his youngest son. He is and has 4 children. He is a current smoker approximately 8-9 cigarettes a day. Code status full code Smoking status: Current some day smoker Alcohol intake: current Substance use: never Lack of Transportation: No Lack of Food: Never True Current Housing: I Have Housing Concerned About Future Housing: Decline to Answer Difficulty Paying Gas/Electric Bills: Decline to Answer Difficulty Paying for Meds: Decline to Answer Currently Unemployed: Decline to Answer Education: Decline to Answer Difficulty w/ Childcare or Family Care: Decline to Answer Spiritual care concerns: No <Odalys Zepeda PA-C - Last Filed: 05/07/24 16:49> Exam 2 Narrative: GENERAL: Well-appearing, well-nourished, and in no acute distress. HEAD: Normocephalic, atraumatic. EYES: EOMI. ENT: Nares clear, no rhinorrhea or epistaxis. Mucous membranes moist. Oropharynx without tonsillar hypertrophy exudate or other lesions. Bilateral TMs pearly garcia non-bulging NECK: Supple. No adenopathy or masses. CHEST: No respiratory distress. Rales in the right lower lobe. No wheezes or rhonchi HEART: Regular rate and rhythm. No murmur heard. Normal peripheral pulses. EXTREMITIES: Normal range of motion. No edema. SKIN: Warm, dry, no rash. NEURO: No focal deficits. Alert and oriented x3. PSYCH: Normal mood and affect <KASSY Harris Last Filed: 05/08/24 01:13> Course Course Emergency Course: Patient family updated on workup and agree with plan of care <KASSY Harris Last Filed: 05/08/24 01:13> Vital Signs Vital signs: Vital Signs Temperature 97.9 F 05/07/24 16:32 Pulse Rate 95 05/07/24 16:32 Respiratory Rate 18 05/07/24 16:32 Blood Pressure 131/67 05/07/24 16:32 Pulse Oximetry 92 05/07/24 16:32 Oxygen Delivery Room Air 05/07/24 16:32 Temperature 97.9 F 05/07/24 16:32 Pulse Rate 89 05/07/24 23:15 Respiratory Rate 20 05/07/24 23:15 Blood Pressure 126/77 05/07/24 23:15 Pulse Oximetry 94 05/07/24 23:15 Oxygen Delivery Room Air 05/07/24 16:32 <Odalys Zepeda PA-C - Last Filed: 05/07/24 16:49> Vital Signs Temperature 97.9 F 05/07/24 16:32 Pulse Rate 95 05/07/24 16:32 Respiratory Rate 18 05/07/24 16:32 Blood Pressure 131/67 05/07/24 16:32 Pulse Oximetry 92 05/07/24 16:32 Oxygen Delivery Room Air 05/07/24 16:32 Temperature 97.9 F 05/07/24 16:32 Pulse Rate 89 05/07/24 23:15 Respiratory Rate 20 05/07/24 23:15 Blood Pressure 126/77 05/07/24 23:15 Pulse Oximetry 94 05/07/24 23:15 Oxygen Delivery Room Air 05/07/24 16:32 <KASSY Harris Last Filed: 05/08/24 01:13> MDM - Arrhythmia/Palpitations MDM Narrative Medical decision making narrative: MSE by ANA PAULA in triage. <Odalys Zepeda PA-C - Last Filed: 05/07/24 16:49> MSE by ANA PAULA in triage. Patient presents to the emergency department for cold symptoms present over the last week. Reporting his what itch telling him he was having an irregular heartbeat. Patient is in normal sinus rhythm. He does have occasional premature beats. His heart rate has been normal. He is afebrile and nontoxic appearing. CBC without leukocytosis. Metabolic panel without concerning findings. Baseline and 3 hour troponin are negative. Chest x-ray shows pneumonia at the right lower lobe. Patient family updated on workup and agree with plan of care. Will be started on oral antibiotics. He was given warnings to return to the ER. Patient is influenza A positive. Will be started on Tamiflu as well <Annette Swenson PA-C - Last Filed: 05/08/24 01:13> Differential Diagnosis Differential diagnosis: Likely palpitations, anxiety, sinus tachycardia, artial fibrillation, ventricular premature beats and other (pneumonia) <Annette Swenson PA-C - Last Filed: 05/08/24 01:13> Lab Data Attestation: I reviewed the patient's lab results. <Annette Swenson PA-C - Last Filed: 05/08/24 01:13> Result diagrams: 05/07/24 16:49 05/07/24 16:49 <KASSY Bob Last Filed: 05/07/24 16:49> Labs: Lab Results 05/07/24 05/07/24 05/07/24 Range/Units 16:49 19:34 22:32 WBC 9.3 (4.5-10.0) K/mm3 RBC 3.62 L (4.6-6.20) M/mm3 Hgb 11.2 L (14.0-18.0) g/dL Hct 34.1 L (42.0-52.0) % MCV 94.2 (80-100) fl MCH 30.9 (26-34) pg MCHC 32.8 (32-36) g/dl RDW 13.5 (11.5-14.5) % Plt Count 196 (150-375) k/mm3 MPV 11.3 H (7.4-10.4) fl Immature Gran % (Auto) Not Reportable Neut % (Auto) Not Reportable Lymph % (Auto) Not Reportable Blair % (Auto) Not Reportable Eos % (Auto) Not Reportable Baso % (Auto) Not Reportable Lymph # (Auto) Not Reportable Blair # (Auto) Not Reportable Eos # (Auto) Not Reportable Baso # (Auto) Not Reportable Abs Immat Gran (auto) Not Reportable Absolute Neuts (auto) Not Reportable Absolute Nucleated RBC Not Reportable Total Counted 100 Neutrophils % (Manual) 65 (46-73) % Band Neutrophils % 0 (0-6) % Lymphocytes % (Manual) 17 L (18-44) % Monocytes % (Manual) 17 H (3-9) % Eosinophils % (Manual) 1 (0-4) % Nucleated RBC % Not Reportable Abs Neuts (Manual) 6.04 (1.3-6.7) K/mm3 Abs Lymphs (Manual) 1.58 (1.1-4.5) K/mm3 Abs Monocytes (Manual) 1.58 H (0.1-0.90) K/mm3 Absolute Eos (Manual) 0.09 (0.02-0.50) K/mm3 Platelet Estimate Adequate (Adequate) Schistocytes None seen PT 13.6 (11.1-14.7) Seconds INR 1.0 APTT 49.7 H (22.3-36.8) Seconds Sodium 138 (137-145) mmol/L Potassium 3.7 (3.4-5.0) mmol/L Chloride 98 (98-107) mmol/L Carbon Dioxide 33 H (22-30) mmol/L Anion Gap 7 (4-12) mmol/L BUN 13 (9-20) mg/dL Creatinine 0.74 (0.7-1.3) mg/dL Estim Creat Clear Calc 67 ml/min Estimated GFR > 60 (59 - ) Glucose 97 (65-110) mg/dL Calcium 8.8 (8.4-10.2) mg/dL Total Bilirubin 0.7 (0.2-1.3) mg/dL AST 36 (17-59) U/L ALT 23 (6-50) U/L Alkaline Phosphatase 114 (38-126) U/L Troponin I < 0.012 < 0.012 < 0.012 (0.000-0.034) ng/mL Total Protein 7.0 (6.3-8.2) g/dL Albumin 3.6 (3.5-5.1) g/dL Lipase 81 (23-300) U/L Influenza A (RT-PCR) (Negative) Influenza B (RT-PCR) (Negative) RSV (RT-PCR) (Negative) SARS-CoV-2 RNA (RT-PCR) (Negative) 05/07/24 Range/Units 23:15 WBC (4.5-10.0) K/mm3 RBC (4.6-6.20) M/mm3 Hgb (14.0-18.0) g/dL Hct (42.0-52.0) % MCV (80-100) fl MCH (26-34) pg MCHC (32-36) g/dl RDW (11.5-14.5) % Plt Count (150-375) k/mm3 MPV (7.4-10.4) fl Immature Gran % (Auto) Neut % (Auto) Lymph % (Auto) Blair % (Auto) Eos % (Auto) Baso % (Auto) Lymph # (Auto) Blair # (Auto) Eos # (Auto) Baso # (Auto) Abs Immat Gran (auto) Absolute Neuts (auto) Absolute Nucleated RBC Total Counted Neutrophils % (Manual) (46-73) % Band Neutrophils % (0-6) % Lymphocytes % (Manual) (18-44) % Monocytes % (Manual) (3-9) % Eosinophils % (Manual) (0-4) % Nucleated RBC % Abs Neuts (Manual) (1.3-6.7) K/mm3 Abs Lymphs (Manual) (1.1-4.5) K/mm3 Abs Monocytes (Manual) (0.1-0.90) K/mm3 Absolute Eos (Manual) (0.02-0.50) K/mm3 Platelet Estimate (Adequate) Schistocytes PT (11.1-14.7) Seconds INR APTT (22.3-36.8) Seconds Sodium (137-145) mmol/L Potassium (3.4-5.0) mmol/L Chloride (98-107) mmol/L Carbon Dioxide (22-30) mmol/L Anion Gap (4-12) mmol/L BUN (9-20) mg/dL Creatinine (0.7-1.3) mg/dL Estim Creat Clear Calc ml/min Estimated GFR (59 - ) Glucose (65-110) mg/dL Calcium (8.4-10.2) mg/dL Total Bilirubin (0.2-1.3) mg/dL AST (17-59) U/L ALT (6-50) U/L Alkaline Phosphatase (38-126) U/L Troponin I (0.000-0.034) ng/mL Total Protein (6.3-8.2) g/dL Albumin (3.5-5.1) g/dL Lipase (23-300) U/L Influenza A (RT-PCR) Positive A (Negative) Influenza B (RT-PCR) Negative (Negative) RSV (RT-PCR) Negative (Negative) SARS-CoV-2 RNA (RT-PCR) Negative (Negative) <Odalys Zepeda PA-C - Last Filed: 05/07/24 16:49> Lab Results 05/07/24 05/07/24 05/07/24 Range/Units 16:49 19:34 22:32 WBC 9.3 (4.5-10.0) K/mm3 RBC 3.62 L (4.6-6.20) M/mm3 Hgb 11.2 L (14.0-18.0) g/dL Hct 34.1 L (42.0-52.0) % MCV 94.2 (80-100) fl MCH 30.9 (26-34) pg MCHC 32.8 (32-36) g/dl RDW 13.5 (11.5-14.5) % Plt Count 196 (150-375) k/mm3 MPV 11.3 H (7.4-10.4) fl Immature Gran % (Auto) Not Reportable Neut % (Auto) Not Reportable Lymph % (Auto) Not Reportable Blair % (Auto) Not Reportable Eos % (Auto) Not Reportable Baso % (Auto) Not Reportable Lymph # (Auto) Not Reportable Blair # (Auto) Not Reportable Eos # (Auto) Not Reportable Baso # (Auto) Not Reportable Abs Immat Gran (auto) Not Reportable Absolute Neuts (auto) Not Reportable Absolute Nucleated RBC Not Reportable Total Counted 100 Neutrophils % (Manual) 65 (46-73) % Band Neutrophils % 0 (0-6) % Lymphocytes % (Manual) 17 L (18-44) % Monocytes % (Manual) 17 H (3-9) % Eosinophils % (Manual) 1 (0-4) % Nucleated RBC % Not Reportable Abs Neuts (Manual) 6.04 (1.3-6.7) K/mm3 Abs Lymphs (Manual) 1.58 (1.1-4.5) K/mm3 Abs Monocytes (Manual) 1.58 H (0.1-0.90) K/mm3 Absolute Eos (Manual) 0.09 (0.02-0.50) K/mm3 Platelet Estimate Adequate (Adequate) Schistocytes None seen PT 13.6 (11.1-14.7) Seconds INR 1.0 APTT 49.7 H (22.3-36.8) Seconds Sodium 138 (137-145) mmol/L Potassium 3.7 (3.4-5.0) mmol/L Chloride 98 (98-107) mmol/L Carbon Dioxide 33 H (22-30) mmol/L Anion Gap 7 (4-12) mmol/L BUN 13 (9-20) mg/dL Creatinine 0.74 (0.7-1.3) mg/dL Estim Creat Clear Calc 67 ml/min Estimated GFR > 60 (59 - ) Glucose 97 (65-110) mg/dL Calcium 8.8 (8.4-10.2) mg/dL Total Bilirubin 0.7 (0.2-1.3) mg/dL AST 36 (17-59) U/L ALT 23 (6-50) U/L Alkaline Phosphatase 114 (38-126) U/L Troponin I < 0.012 < 0.012 < 0.012 (0.000-0.034) ng/mL Total Protein 7.0 (6.3-8.2) g/dL Albumin 3.6 (3.5-5.1) g/dL Lipase 81 (23-300) U/L Influenza A (RT-PCR) (Negative) Influenza B (RT-PCR) (Negative) RSV (RT-PCR) (Negative) SARS-CoV-2 RNA (RT-PCR) (Negative) 03/06/25 Range/Units 23:15 WBC (4.5-10.0) K/mm3 RBC (4.6-6.20) M/mm3 Hgb (14.0-18.0) g/dL Hct (42.0-52.0) % MCV (80-100) fl MCH (26-34) pg MCHC (32-36) g/dl RDW (11.5-14.5) % Plt Count (150-375) k/mm3 MPV (7.4-10.4) fl Immature Gran % (Auto) Neut % (Auto) Lymph % (Auto) Blair % (Auto) Eos % (Auto) Baso % (Auto) Lymph # (Auto) Blair # (Auto) Eos # (Auto) Baso # (Auto) Abs Immat Gran (auto) Absolute Neuts (auto) Absolute Nucleated RBC Total Counted Neutrophils % (Manual) (46-73) % Band Neutrophils % (0-6) % Lymphocytes % (Manual) (18-44) % Monocytes % (Manual) (3-9) % Eosinophils % (Manual) (0-4) % Nucleated RBC % Abs Neuts (Manual) (1.3-6.7) K/mm3 Abs Lymphs (Manual) (1.1-4.5) K/mm3 Abs Monocytes (Manual) (0.1-0.90) K/mm3 Absolute Eos (Manual) (0.02-0.50) K/mm3 Platelet Estimate (Adequate) Schistocytes PT (11.1-14.7) Seconds INR APTT (22.3-36.8) Seconds Sodium (137-145) mmol/L Potassium (3.4-5.0) mmol/L Chloride (98-107) mmol/L Carbon Dioxide (22-30) mmol/L Anion Gap (4-12) mmol/L BUN (9-20) mg/dL Creatinine (0.7-1.3) mg/dL Estim Creat Clear Calc ml/min Estimated GFR (59 - ) Glucose (65-110) mg/dL Calcium (8.4-10.2) mg/dL Total Bilirubin (0.2-1.3) mg/dL AST (17-59) U/L ALT (6-50) U/L Alkaline Phosphatase (38-126) U/L Troponin I (0.000-0.034) ng/mL Total Protein (6.3-8.2) g/dL Albumin (3.5-5.1) g/dL Lipase (23-300) U/L Influenza A (RT-PCR) Positive A (Negative) Influenza B (RT-PCR) Negative (Negative) RSV (RT-PCR) Negative (Negative) SARS-CoV-2 RNA (RT-PCR) Negative (Negative) <Annette Swenson PA-C - Last Filed: 05/08/24 01:13> Imaging Data Radiologist's impression: ITS Impressions Chest X-Ray 05/07/24 17:06 IMPRESSION: Prominent markings in the right lung base suggestive of early pneumonia. Follow- up and clinical correlation advised. <KASSY Harris Last Filed: 05/08/24 01:13> ECG Data EKG #1: ECG completion date: 05/07/24 <KASSY Harris Last Filed: 05/08/24 01:13> EKG Interpretation: normal rate, sinus rhythm, no ST changes and normal QT <KASSY Harris Last Filed: 05/08/24 01:13> Critical Care Time Critical Care Time Critical Care Time: No <KASSY Harris Last Filed: 05/08/24 01:13> Discharge Plan Discharge Clinical Impression: Influenza A Pneumonia Qualifiers: Pneumonia type: due to unspecified organism Laterality: right Lung location: l ower lobe of lung Qualified Code(s): J18.9 - Pneumonia, unspecified organism <KASSY Bob Last Filed: 05/07/24 16:49> Patient Disposition: Home, Self-Care <KASSY Bob Last Filed: 05/07/24 16:49> Condition: Stable <KASSY Bob Last Filed: 05/07/24 16:49> Instructions: Antibiotic Form, Influenza (ED), Community Acquired Pneumonia (ED) <KASSY Bob Last Filed: 05/07/24 16:49> Additional Instructions: Return to the emergency department for worsening symptoms, or any other concerns Remain well-hydrated, get plenty of rest. Take Tylenol or Motrin [id number] for pain as needed. Flonase for nasal congestion. Zyrtec for runny nose. Take oral antibiotics as prescribed Follow up with your primary care doctor <Odalys Zepeda PA-C - Last Filed: 05/07/24 16:49> Patient Language: Togolese <Odalys Zepeda PA-C - Last Filed: 05/07/24 16:49> Prescriptions: New azithromycin 250 mg tablet See Rx Instructions .ROUTE .COMPLEX Qty: 6 0RF Rx Instructions: For 250 mg dose pack: take 500 mg today (day 1), then 250 mg for 4 days (days 2-5) cefpodoxime 200 mg tablet 200 mg PO BID 5 Days Qty: 10 0RF Rx Instructions: must administer with a meal/food oseltamivir 75 mg capsule 75 mg PO Q12H 5 Days Qty: 10 0RF No Action atorvastatin 80 mg Tablet 80 mg PO HS clopidogrel 75 mg Tablet 75 mg PO DAILY gabapentin 800 mg Tablet 800 mg PO TID levetiracetam [Keppra] 500 mg Tablet 500 mg PO Q12HR Qty: 60 1RF <Odalys Zepeda PA-C - Last Filed: 05/07/24 16:49> Follow-up/Referrals: [facility] [Primary Care Provider] - <Odalys Zepeda PA-C - Last Filed: 05/07/24 16:49>
[2024-05-07 16:53] LABS: Hematocrit 34.1 % (42.0-52.0); Hemoglobin 11.2 g/dL (14.0-18.0); Mean Corpuscular HGB Conc 32.8 g/dl (32-36); Mean Corpuscular Hemoglobin 30.9 pg (26-34); Mean Corpuscular Volume 94.2 fl (80-100); Mean Platelet Volume 11.3 fl (7.4-10.4); Platelet Count Result 196 k/mm3 (150-375); Red Blood Count 3.62 M/mm3 (4.6-6.20); Red Cell Distribution Width 13.5 % (11.5-14.5); White Blood Count 9.3 K/mm3 (4.5-10.0)
[2024-05-07 17:11] LABS: Prothrombin Time 13.6 Seconds (11.1-14.7)
[2024-05-07 17:12] LABS: Partial Thromboplastin Time 49.7 Seconds (22.3-36.8)
[2024-05-07 17:18] LABS: Alanine Aminotransferase 23 U/L (6-50); Albumin Level 3.6 g/dL (3.5-5.1); Alkaline Phosphatase 114 U/L (38-126); Anion Gap 7 mmol/L (4-12); Aspartate Amino Transferase 36 U/L (17-59); Bilirubin,Total 0.7 mg/dL (0.2-1.3); Blood Urea Nitrogen 13 mg/dL (9-20); Calcium 8.8 mg/dL (8.4-10.2); Carbon Dioxide 33 mmol/L (22-30); Chloride 98 mmol/L (98-107); Estimated CRCL calculation 67 ml/min; Estimated Glomerular Filt Rate > 60; Glucose 97 mg/dL (65-110); Lipase 81 U/L (23-300); Potassium 3.7 mmol/L (3.4-5.0); Sodium 138 mmol/L (137-145); Troponin I < 0.012 ng/mL (0.000-0.034)
[2024-05-07 17:22] LABS: Band Neutrophils Percent 0 % (0-6); Eosinophils Absolute Manual 0.09 K/mm3 (0.02-0.50); Eosinophils Percent Manual 1 % (0-4); Lymphocytes Absolute Manual 1.58 K/mm3 (1.1-4.5); Lymphocytes Percent Manual 17 % (18-44); Monocytes Absolute Manual 1.58 K/mm3 (0.1-0.90); Monocytes Percent Manual 17 % (3-9); Neutrophils Absolute Manual 6.04 K/mm3 (1.3-6.7); Neutrophils Percent Manual 65 % (46-73); Platelet Estimate Adequate (Adequate); Total Cells Counted 100
[2024-05-07 17:23] LABS: Schistocytes None Seen
--- NOTE | 2024-05-07 19:30 | ECG_ITS ---
Test Date: 2024-05-07 19:31:00 Measurements Intervals [place] Rate: 84 P: 69 ID: [id number] QRS: 61 QRSD: 86 T: 70 QT: 398 QTc: 471 Interpretive Statements SINUS RHYTHM WITH OCCASIONAL ECTOPIC PREMATURE COMPLEXES INCOMPLETE RIGHT BUNDLE BRANCH BLOCK Compared to ECG 05/07/2024 16:41:39 NO SIGNIFICANT CHANGES Electronically Signed On 05-08-2024 16:24:28 [employer]IC REHABILITATION THERAPIST by Bladimir Perez M.D.
[2024-05-07 20:18] LABS: Troponin I < 0.012 ng/mL (0.000-0.034)
[2024-05-07 22:23] VITALS: BP 135/79; PULSE 85; RESP 16; O2SAT 95
[2024-05-07 22:59] LABS: Troponin I < 0.012 ng/mL (0.000-0.034)
[2024-05-07 23:15] VITALS: BP 126/77; PULSE 89; RESP 20; O2SAT 94
[2024-05-07 23:54] LABS: Influenza A QL RT-PCR Positive (Negative); Influenza B QL RT-PCR Negative (Negative); RSV RNA, RT-PCR Negative (Negative); SARS-CoV-2 RNA PCR Negative (Negative)
== END 2024-05-08 00:45 | disposition home or self-care (01) ==
LOC: ANHED 23:34
PROVIDERS: Emergency Medicine; Emergency Provider Physician Assistant
DX: J10.1 Influenza due to other identified influenza virus with other respiratory manifestations (principal); J18.9 Pneumonia, unspecified organism; Z20.822 Contact with and (suspected) exposure to COVID-19; I25.10 Atherosclerotic heart disease of native coronary artery without angina pectoris; I10 Essential (primary) hypertension; I34.1 Nonrheumatic mitral (valve) prolapse; E78.5 Hyperlipidemia, unspecified; D64.9 Anemia, unspecified; F17.210 Nicotine dependence, cigarettes, uncomplicated; Z85.820 Personal history of malignant melanoma of skin; Z86.73 Personal history of transient ischemic attack (TIA), and cerebral infarction without residual deficits; Z98.49 Cataract extraction status, unspecified eye; Z79.02 Long term (current) use of antithrombotics/antiplatelets; Z79.899 Other long term (current) drug therapy; I49.3 Ventricular premature depolarization; I45.10 Unspecified right bundle-branch block
CPT/HCPCS: 36415; 71046; 80053; 83690; 84484; 85025; 85610; 85730; 87637; 93005; 99284